=== PATIENT | male | born 1975 | race Caucasian/White ===

== ENCOUNTER 2017-12-20 17:06 | Emergency (ER) | payer MEDICAID ==
[~2017-12-20] VITALS: Ht 172.7 cm; Wt 90.7 kg
[2017-12-20 17:20] VITALS: Ht 172.7 cm; Wt 90.7 kg
[2017-12-20 18:33] VITALS: BP 147/77
== END 2017-12-20 18:59 | disposition home or self-care (01) ==
LOC: ED 17:06
DX: H16.002 Unspecified corneal ulcer, left eye (principal); Z88.6 Allergy status to analgesic agent

== ENCOUNTER 2019-11-06 22:43 | Emergency (ER) | payer SELFPAY ==
[~2019-11-06] VITALS: Ht 175.3 cm; Wt 110.7 kg
[2019-11-06 22:51] VITALS: Ht 175.3 cm; Wt 110.7 kg
[2019-11-06 23:59] VITALS: BP 110/80
== END 2019-11-06 23:59 | disposition home or self-care (01) ==
LOC: ED 22:43
DX: L50.9 Urticaria, unspecified (principal); E11.9 Type 2 diabetes mellitus without complications; Z91.013 Allergy to seafood; Z88.6 Allergy status to analgesic agent
CPT/HCPCS: Q0163